=== PATIENT | female | born 1970 | race Caucasian/White ===

== ENCOUNTER 2019-05-31 14:02 | Emergency (ER) | payer SELFPAY ==
[2019-05-31] MEDS ORDERED: IBUPROFEN 800 MG TABLET PO ONE (15:11)
--- NOTE | 2019-05-31 15:15 | ER Document Report ---
HPI - HPI Patient complains to provider of: Cough body aches Time Seen by Provider: 05/31/19 15:03 Onset: Yesterday Onset/Duration: Sudden Quality of pain: Achy Pain Level: 3 Context: 49-year-old female with no previous history presents emergency department with complaints of cough and body aches that started yesterday. Reports it hurts to take a deep breath or cough. Denies fever vomiting diarrhea. Denies nausea. Has not received a flu vaccine. No recent trips no recent exposure to anybody from overseas. She reports she took Kassie-Lorain without relief. Associated Symptoms: Body/muscle aches, Nonproductive cough Exacerbated by: Coughing, Deep breathing Relieved by: Denies Similar symptoms previously: No Recently seen / treated by doctor: No - REPRODUCTIVE LMP: 05/23/19 Reproductive: DENIES: : Past Medical History - General Information source: Patient Last Menstrual Period: May 22, 2019 - Social History Smoking Status: Never Smoker Chew tobacco use (# tins/day): No Frequency of alcohol use: Rare Drug Abuse: Marijuana Occupation: [employer] Lives with: Family Family History: Arthritis, CAD, CVA, DM, Hypertension Patient has suicidal ideation: No Patient has homicidal ideation: No - Medical History Medical History: Negative Pulmonary Medical History: Denies: Hx Asthma - bronchitis Past Surgical History: Reports: Hx Section - x 2, Hx Cholecystectomy - Immunizations Hx Diphtheria, Pertussis, Tetanus Vaccination: Yes Vertical Provider Document - CONSTITUTIONAL Agree With Documented VS: Yes Exam Limitations: No Limitations General Appearance: WD/WN, No Apparent Distress - INFECTION CONTROL TRAVEL OUTSIDE OF THE [place] IN LAST 30 DAYS: No - HEENT HEENT: Atraumatic, Normal ENT Exam, Normocephalic. negative: Conjuctival Injection, Pharyngeal Erythema, Tympanic Membrane Bulging - NECK Neck: Normal Inspection, Supple. negative: Lymphadenopathy-Left, Lymphadenopathy-Right - RESPIRATORY Respiratory: Breath Sounds Normal, No Respiratory Distress. negative: Rhonchi, Wheezing - CARDIOVASCULAR Cardiovascular: Regular Rate, Regular Rhythm - GI/ABDOMEN Gastrointestinal: Abdomen Soft, Abdomen Non-Tender - BACK Back: negative: CVA Tenderness-Right, CVA Tenderness-Left - MUSCULOSKELETAL/EXTREMETIES Musculoskeletal/Extremeties: KEON TEIXEIRA - NEURO Level of Consciousness: Awake, Alert, Appropriate Motor/Sensory: No Motor Deficit - DERM Integumentary: Warm, Dry, No Rash Course - Re-evaluation Re-evalutation: 05/31/19 15:13 -year-old presents to the emergency department with complaints of body aches cough that started yesterday. No fever no recent trip. Did not receive the flu vaccine. Chest x-ray influenza and Motrin ordered. 05/31/19 16:04 Laboratory 05/31/19 15:15 Influenza A (Rapid) NEGATIVE Influenza B (Rapid) NEGATIVE Chest X-Ray 05/31/19 15:11 IMPRESSION: NO ACUTE RADIOGRAPHIC FINDING IN THE CHEST. 05/31/19 Flu and chest x-ray negative. Respiratory rate even unlabored. Patient was instructed on results instructed on push fluids monitor temperature return for concerns. She verbalized understanding to all instructions. - Vital Signs Vital signs: Temp Pulse Resp BP Pulse Ox 98.7 F 109 H 20 111/69 96 05/31/19 14:27 05/31/19 14:27 05/31/19 14:27 05/31/19 14:27 05/31/19 14:27 - Diagnostic Test Radiology reviewed: Image reviewed, Reports reviewed Discharge - Discharge Clinical Impression: Cough, Body aches Condition: Stable Disposition: HOME, SELF-CARE Instructions: Use of Xakl-Ddu-Sesvcgx Ibuprofen ([facility]), Tessalon Perles ([facility]) Additional Instructions: *You have been evaluated for body aches, cough Your flu test was negative. Your chest x-ray was negative for pneumonia *Increase fluid intake as discussed Push fluids, wash your hands *Take medication as prescribed *Monitor your temperature, take Tylenol as indicated *Follow up with a primary care provider within 1 week *Return to ED for worsening condition, changes, needs, concerns Prescriptions: Benzonatate [Tessalon Perles 100 mg Capsule] 100 mg PO ASDIR PRN #20 capsule PRN Reason: Forms: Return to Work
[2019-05-31 15:49] LABS: A TYPE INFLUENZA AG NEGATIVE (NEGATIVE); B INFLUENZA AG NEGATIVE (NEGATIVE)
--- NOTE | 2019-05-31 15:49 | RADIOLOGY REPORT (SQ) ---
EXAM DESCRIPTION: CHEST 2 VIEWS COMPLETED DATE/TIME: 05/31/2019 3:33 pm REASON FOR STUDY: cough COMPARISON: 07/22/2014 EXAM PARAMETERS: NUMBER OF VIEWS: two views TECHNIQUE: Digital Frontal and Lateral radiographic views of the chest acquired. RADIATION DOSE: NA LIMITATIONS: none FINDINGS: LUNGS AND PLEURA: No opacities, masses or pneumothorax. No pleural effusion. MEDIASTINUM AND HILAR STRUCTURES: No masses or contour abnormalities. HEART AND VASCULAR STRUCTURES: Heart normal size. No evidence for failure. BONES: No acute findings. HARDWARE: None in the chest. OTHER: No other significant finding. IMPRESSION: NO ACUTE RADIOGRAPHIC FINDING IN THE CHEST. TECHNICAL DOCUMENTATION: JOB ID: [id number] 2010 [employer]- All Rights Reserved Reading location - IP/workstation name: [email or web address]
[2019-05-31 16:15] VITALS: BP 118/65
== END 2019-05-31 16:18 | disposition home or self-care (01) ==
LOC: ER 14:02
DX: R05 Cough (principal); M79.10 Myalgia, unspecified site; Z90.49 Acquired absence of other specified parts of digestive tract
CPT/HCPCS: 71046; 87804; 99283